=== PATIENT | male | born 1975 | race Caucasian/White ===

== ENCOUNTER 2019-02-28 01:12 | Emergency (ER) | payer SELFPAY ==
[~2019-02-28] VITALS: Ht 167.6 cm; Wt 61.4 kg
[2019-02-28 01:16] VITALS: BP 150/101
[2019-02-28] MEDS ORDERED: METH10SO PO (01:20)
== END 2019-02-28 02:30 | disposition left against medical advice (07) ==
LOC: EMS 01:16
DX: Z02.89 Encounter for other administrative examinations (principal); Z53.21 Procedure and treatment not carried out due to patient leaving prior to being seen by health care provider